=== PATIENT | female | born 1945 | race Caucasian/White ===

== ENCOUNTER 2024-03-20 06:17 | Day surgery (SDC) | payer MEDICARE, SELFPAY ==
--- NOTE | 2024-03-19 23:02 | PM.HP.1 ---
History of Present Illness History of Present Illness Chief complaint: [facility] [place] Narrative: 78 year old female here for severe right foot pain after multiple surgeries. Patient states she want to be able to walk more again. Patient's initial injury began with a plantar plate tear and bunion surgery, then she subsequently received more first ray fusions, hammer toe repairs, and metatarsal shortening osteotomies. Patient has brought her HbA1c down to 7.5% from nearly 10%, which resulted in cancellation of surgery earlier this year. Patient denies n/v/f/c/sob/cp. PFSH Medical History (Updated 01/18/24 @ 12:28 by Carmenza Song, RN) Hypothyroidism HLD (hyperlipidemia) Diabetes Surgical History (Updated 01/18/24 @ 12:28 by Carmenza Song RN) S/P foot surgery, right Meds Home Medications and Allergies Home Medications Medication Instructions Recorded Confirmed Type albuterol sulfate 90 mcg/actuation puff inhalation 01/18/24 History aerosol inhaler atorvastatin 10 mg tablet 10 mg PO DAILY 01/18/24 01/18/24 History glipizide 5 mg tablet 5 mg PO 01/18/24 History levothyroxine 100 mcg tablet 100 mcg PO DAILY 01/18/24 01/18/24 History metformin 500 mg tablet 500 mg PO 01/18/24 History ramipril 5 mg capsule 5 mg PO 01/18/24 History Exam Neuro Other: Severe paresthesia right second ray. Extrem Other: Severe tenderness on palpation to right met head 2 with prominent bone. Assessment & Plan Assessment & Plan narrative: 1. 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 Surgical plan: right second metatarsal head excision and release of scar contracture for nerve decompression. Risks and benefits of the procedure discussed with all questions answered to patient's satisfaction. Reviewed potential complications that may include but not limited to the following: DVT, failure to resolve all symptoms, infection, nerve injury, bleeding, recurrence, or wound. Reviewed surgical technique and general aftercare protocols. All questions answered to patient's satisfaction with no guarantees made. Patient verbalized understanding and agreed with surgical plan. RTC for post-op.
[2024-03-20] VITALS (7 sets, daily range): BP systolic 115–187; BP diastolic 56–99; PULSE 74–91; RESP 14–17; TEMP 36.2–36.6; O2SAT 92–95; BMI 40.2
[2024-03-20] MEDS: ACETAMINOPHEN 325 MG TABLET 975 MG PO (07:10)
[2024-03-20] MEDS: LACTATED RINGERS 1,000 ML 42 ML IV ×2 (07:11→10:47)
--- NOTE | 2024-03-20 07:46 | PM.PREOP ---
Pre-operative Note Interval Note History & Physical reviewed/Exam performed by Physician: Yes Changes to H&P: No
[2024-03-20] MEDS: CEFAZOLIN 2 GM/100 ML PREMIX 100 ML IV (08:05)
--- NOTE | 2024-03-20 08:30 | SUR.OPER ---
Supine on padded OR bed, head on pillow, arms secured on padded arm boards at <90 degrees abduction, legs uncrossed, safety belt at thigh, tape over non operative leg, operative leg resting on bump, bump under right hip.
[2024-03-20] MEDS: LIDOCAINE 1% 20 ML INJ (08:36)
[2024-03-20] MEDS: SODIUM CHLORIDE 0.9% 1,000 ML, GENTAMICIN 80 MG IRR (09:38)
[2024-03-20] MEDS: BUPIVACAINE 0.5% (PF) 30 ML VIAL INJ (09:48)
[2024-03-20] MEDS: INSULIN REGULAR 100 UNIT/ML 3 ML VIAL IV (11:00)
--- NOTE | 2024-03-20 15:30 | PM.OP.1 ---
Operative Date/Time/Diagnoses Date of procedure: 03/20/24 Pre-op diagnosis: 1. Right second metatarsal hypertrophy of bone 2. 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 Right foot hardware pain Post-op diagnosis: same Procedure & Clinicians Procedure: 1. Right foot second metatarsal head ostectomy with implantation of allograft 2. Right foot nerve decompression 3. Right foot plantar plate hardware removal Same procedure as scheduled: Yes Indications: 1. Right foot severe painful callus secondary to prominent second metatarsal rigidly dislocated in plantarflexion 2. Right foot nerve pain 3. Right foot hardware complication Surgeon: Sagar Conway Operative Notes Findings: 1. Right foot enlarged and flatted with severe degenerative changes to second metatarsophalangeal joint 2. Right foot scar tissues with entrapment of dorsal digital nerve and stump of plantar digital nerve from previous surgery 3. Right foot hardware with overtensioning of plantar plate repair system Closure Type: primary Specimen(s): none sent Applied: cast(s) Estimated Blood Loss (mL): 10 Blood products transfused: none Tourniquet time (min): 85 Procedure in detail: Patient was identified, marked, consented, and brought into the operating room via gurney and then transferred onto the operating table. Patient was in supine position for entirely of procedure. Anesthesia was administered and local block using 10 cc 1% lidocaine plain was administered to right foot. An 18 inch ankle tourniquet was applied to well-padded surface on right ankle. Right lower limb was prepped and draped in usual sterile fashion, followed by official time out with surgical team all in agreement. Attention was directed to right forefoot. A linear incision was made over second ray using #15 scalpel. Dissection was carried out from skin down to bone with respect to tissues planes, and care was made to protect neurovascular structures. Significant adhesion was encountered with entrapment of dorsal digital, which was dissected out and freed using a curved metzenbaum scissor. Further dissection revealed the stump of plantar digital nerve, which appeared to be from previous surgical intervention. Right second metatarsophalangeal joint was identified, and contracture was sharply released. Decision was made to remove previous plantar plate hardware system due to improper position with evidence of overtensioning. Two screws were removed, along with associated suture tape and mechanism in place, At this point, there is restored motion to second toe but remains to be elevated. Procedure site was irrigated with 1L saline mixed with gentamicin. Decision was made to resect the hypertrophic and flattened second metatarsal head to the level of protrusion noted at plantar surface in correlation with significantly enlarged callus, which was also pared down using #15 scalpel. A sagittal saw was used to resect the bone with the blade oriented from dorsal distal to plantar proximal in order to off-load the weight bearing surface. A dorsal drill hole was made with a K-wire near the cut bone, and a suture passer was used to pass 3-0 vicryl connected to QuantumCord, which was rolled up from one 2 x 3 and one 3 x 5 cm sheet held together by 0 vicryl. Minimal void was left as a result of allgoraft arthroplasty. Procedure site was irrigated again with copious saline, followed by closure in layers using 3-0 and 4-0 vicryls and 3-0 and 4-0 nylons. Tourniquet was released at 85 minutes with good capillary refill noted. Procedure site was cleaned and dried. Sterile dressing was applied using iodine soaked Adaptic, gauze, abdominal pad, and Kerlix. Posterior splint was then molded and applied over ample cast padding and secured with elastic bandage wraps. Patient toelrated procedure without complication and was transferred to PACU in stable condition. Complications: none Post-operative Condition: stable Disposition: same day surgery Plan for aftercare: NWB to surgical limb. Elevate above heart on 2+ pillows. Ice behind knee 15 min/hr. Keep dressing clean, dry, and intact. Follow-up as appointed. Take medications as directed. RTC as scheduled.
== END 2024-03-20 11:33 | disposition home or self-care (01) ==
PROVIDERS: PCP Family Medicine Adult Medicine; Referring Provider Podiatrist Foot & Ankle Surgery; Visit Provider Podiatrist Foot & Ankle Surgery
PROC: (CPT 28112; principal; 2024-03-20 07:45)
DX: M89.371 Hypertrophy of bone, right ankle and foot (principal); T84.84XD Pain due to internal orthopedic prosthetic devices, implants and grafts, subsequent encounter; G58.8 Other specified mononeuropathies; L90.5 Scar conditions and fibrosis of skin
CPT/HCPCS: 28112; 20680; 64704; J0690; J2405; J2704; J2765; J3010